=== PATIENT | female | born 1965 | race Caucasian/White ===

== ENCOUNTER 2016-11-21 14:42 | Emergency (ER) | payer OTHER ==
[~2016-11-21] VITALS: Ht 167.6 cm; Wt 82.6 kg
[2016-11-21 15:12] LABS: URINE BILIRUBIN NEGATIVE (Negative); URINE BLOOD NEGATIVE (Negative); URINE COLOR YELLOW; URINE GLUCOSE-RANDOM* NEGATIVE (Negative); URINE KETONES NEGATIVE (Negative); URINE NITRITE NEGATIVE (Negative); URINE PROTEIN (DIPSTICK) NEGATIVE (Negative); URINE SPECIFIC GRAVITY 1.015 (1.003-1.035); URINE UROBILINOGEN 0.2 E.U./dl (0.2-1.0)
[2016-11-21] MEDS ORDERED: METFORMIN HCL500 MG PO (15:51)
[2016-11-21] MEDS ORDERED: PROTONIX40 M1 PO (15:51)
[2016-11-21] MEDS ORDERED: TOPAMAX100 MG PO (15:52)
[2016-11-21] MEDS ORDERED: ABILIFY 5 MG TAB5 MG PO (15:53)
[2016-11-21] MEDS ORDERED: SERTRALINE HCL50 MG PO (15:53)
[2016-11-21] MEDS ORDERED: TRAZODONE HCL100 MG PO (15:53)
[2016-11-21] MEDS ORDERED: BENZTROPINE MES1 MG PO (15:53)
[2016-11-21 15:55] LABS: MCV 95.9 fL (80.0-100.0)
[2016-11-21 16:00] LABS: HEMATOCRIT 39.3 % (37.0-47.0); HEMOGLOBIN 13.5 gm/dL (12.0-15.0); MCHC 34.4 g/dL (28.0-37.0); PLATELET COUNT 190 thou/uL (150-400); RDW 15.3 % (10.5-14.5); WBC 5.2 thou/uL (4.0-11.0)
[2016-11-21 16:01] LABS: MANUAL DIFF YES
[2016-11-21 16:04] LABS: CALCIUM 9.1 mg/dL (8.5-10.1); CREATININE 0.7 mg/dL (0.6-1.0); POTASSIUM 3.9 mmol/L (3.5-5.1)
[2016-11-21 16:06] LABS: AMP/METHAMP Negative (Negative); BARBITURATES Negative (Negative); BENZODIAZEPINES Negative (Negative); COCAINE Negative (Negative); METHADONE Negative (Negative); OPIATES Negative (Negative); PCP Negative (Negative); THC Negative (Negative)
[2016-11-21 16:10] LABS: ALBUMIN 3.8 g/dL (3.4-5.0); DIRECT BILIRUBIN 0.1 mg/dL (<0.1-0.3); TOTAL BILIRUBIN 0.4 mg/dL (<0.1-1.0)
[2016-11-21 16:21] LABS: ABSOLUTE NEUTROPHILS 2.1 thou/uL (1.4-8.2); ATYPICAL LYMPHS 11 %; TOTAL CELL COUNT 100
[2016-11-21] MEDS ORDERED: CARAFATE 1 GM TA1 G1 PO (17:14)
[2016-11-21 17:15] VITALS: BP 122/76
[2016-11-21] MEDS ORDERED: PHENERGAN 25 MG25 M1 PO (17:17)
== END 2016-11-21 17:35 | disposition home or self-care (01) ==
LOC: ER 14:42
PROVIDERS: Nurse Practitioner
DX: R10.11 Right upper quadrant pain (principal); R10.13 Epigastric pain; E11.9 Type 2 diabetes mellitus without complications; E78.00 Pure hypercholesterolemia, unspecified; F31.9 Bipolar disorder, unspecified; F17.210 Nicotine dependence, cigarettes, uncomplicated; Z91.041 Radiographic dye allergy status

== ENCOUNTER 2019-11-02 08:53 | Emergency (ER) | payer OTHER ==
[~2019-11-02] VITALS: Ht 167.6 cm; Wt 84.4 kg
[~2019-11-02 08:53] MED LIST: ABILIFY 5 MG TAB5 MG PO; BENZTROPINE MES1 MG PO; CARAFATE 1 GM TA1 G1 PO; METFORMIN HCL500 MG PO; PHENERGAN 25 MG25 M1 PO; PROTONIX40 M1 PO; SERTRALINE HCL50 MG PO; TOPAMAX100 MG PO; TRAZODONE HCL100 MG PO
[2019-11-02 10:09] LABS: ABSOLUTE NEUTROPHILS 5.1 thou/uL (1.4-8.2); BASOPHILS 0.8 % (0.0-2.0); EOSINOPHILS 4.3 % (0.0-3.0); HEMATOCRIT 37.2 % (37.0-47.0); HEMOGLOBIN 12.8 gm/dL (12.0-15.0); MCH 31.4 pg (26.0-34.0); MCHC 34.4 g/dL (28.0-37.0); MCV 91.2 fL (80.0-100.0); MONOCYTES 5.8 % (1.0-8.0); PLATELET COUNT 318 thou/uL (150-400); POLYS 59.1 % (36.0-66.0); RBC 4.07 mil/uL (4.20-5.00); RDW 14.8 % (10.5-14.5); WBC 8.7 thou/uL (4.0-11.0)
[2019-11-02 10:19] LABS: CALCIUM 8.7 mg/dL (8.5-10.1); CREATININE 0.7 mg/dL (0.6-1.0); POTASSIUM 4.8 mmol/L (3.5-5.1)
[2019-11-02 10:25] LABS: ALBUMIN 3.9 g/dL (3.4-5.0); TOTAL BILIRUBIN 0.3 mg/dL (0.2-1.0); TOTAL PROTEIN 7.4 g/dL (6.4-8.2)
[2019-11-02] MEDS ORDERED: PROAIR HFA8.5 GM INH (11:24)
[2019-11-02] MEDS ORDERED: ZPAK PO (11:26)
[2019-11-02] MEDS ORDERED: PREDNISONE 5 MG5 M1 PO (11:26)
[2019-11-02 11:38] VITALS: BP 129/83
== END 2019-11-02 11:38 | disposition home or self-care (01) ==
LOC: ER 08:53
PROVIDERS: Emergency Medicine
DX: J20.9 Acute bronchitis, unspecified (principal); E11.9 Type 2 diabetes mellitus without complications; E78.5 Hyperlipidemia, unspecified; F17.210 Nicotine dependence, cigarettes, uncomplicated; J44.9 Chronic obstructive pulmonary disease, unspecified; Z79.899 Other long term (current) drug therapy; Z91.041 Radiographic dye allergy status